=== PATIENT | female | born 1950 | race Caucasian/White ===

== ENCOUNTER 2019-01-01 15:13 | Outpatient (CLI) | payer OTHER | END 2019-01-01 21:08 | disposition home or self-care (01) | LOC: SRD 15:13 | PROVIDERS: ATTEND Internal Medicine | DX: R05 Cough (principal) | CPT/HCPCS: 71046-TC ==

== ENCOUNTER 2019-01-22 00:56 | Emergency (ER) | payer OTHER ==
[~2019-01-22] VITALS: Ht 160 cm; Wt 111.1 kg
[2019-01-22 01:00] VITALS: BP_SYST 155
[2019-01-22] MEDS ORDERED: BACITRACIN ZINC 15 GM TOPICAL OINTMENT TP ONE (03:00)
[2019-01-22] MEDS ORDERED: BACITRACIN 1 GM OINT TP ONE (03:11)
[2019-01-22 03:24] VITALS: BP_SYST 140
[2019-01-22] MEDS ORDERED: LIDOCAINE 1% 10 MG/ML, 20 ML MDV INJ ONE (03:30)
== END 2019-01-22 03:24 | disposition home or self-care (01) ==
LOC: SED 00:56
DX: S61.214A Laceration without foreign body of right ring finger without damage to nail, initial encounter (principal); W26.8XXA Contact with other sharp object(s), not elsewhere classified, initial encounter; Y93.89 Activity, other specified; Y92.89 Other specified places as the place of occurrence of the external cause; Y99.8 Other external cause status
CPT/HCPCS: 99283

== ENCOUNTER 2022-09-21 15:37 | Emergency (ER) | payer OTHER ==
[~2022-09-21] VITALS: Ht 160 cm; Wt 98.0 kg
[~2022-09-21 15:37] MED LIST: FURO20TA4 PO; GLIP10TA11 PO; LIP40 PO; METF-518 PO; METO50TA7 PO; OLAN5TAB71 PO; PROXL60 PO; TRAZ-250 PO; VALS1TAB80 PO
[2022-09-21 15:39] VITALS: BP_SYST 154
--- NOTE | 2022-09-21 15:46 | NUR ---
PT STATED SHE THOUGHT SHE TOOK ATENOLOL AND DIVALPROEX BUT SHE REALIZED THAT SHE DIDNT
== END 2022-09-21 15:46 | disposition left against medical advice (07) ==
LOC: SED 15:37
DX: Z00.8 Encounter for other general examination (principal); Z53.21 Procedure and treatment not carried out due to patient leaving prior to being seen by health care provider

== ENCOUNTER 2023-05-21 19:26 | Emergency (ER) | payer OTHER ==
[~2023-05-21] VITALS: Ht 154.9 cm; Wt 68.0 kg
[~2023-05-21 19:26] MED LIST changes: +NIFE-129 PO; -PROXL60 PO
[2023-05-21 19:41] VITALS: BP_SYST 151; PULSE 83; RESP 20; TEMP 98; O2SAT 98
[2023-05-21 20:41] LABS: BASOPHILS % (AUTO) 0.4 % (0.0-2.0); EOSINOPHILS # (AUTO) 0.1 K/uL (0.0-0.4); EOSINOPHILS % (AUTO) 0.9 % (0.0-4.0); HEMATOCRIT 34.5 % (36-48); HEMOGLOBIN 11.4 g/dL (12.0-16.0); LYMPHOCYTES # (AUTO) 1.1 K/uL (1.0-5.5); LYMPHOCYTES % (AUTO) 14.2 % (20.5-51.5); MEAN CORPUSCULAR HEMOGLOBIN 30 pg (27-31); MEAN CORPUSCULAR HGB CONC 33 % (32-36); MEAN CORPUSCULAR VOLUME 91 fL (79.0-98.0); MONOCYTES # (AUTO) 0.4 K/uL (0.0-1.0); MONOCYTES % (AUTO) 5.4 % (1.7-9.3); NEUTROPHILS # (AUTO) 5.9 K/uL (1.8-7.7); NEUTROPHILS % (AUTO) 79.1 % (40.0-70.0); PLATELET COUNT (AUTO) 229 K/uL (130-430); RED BLOOD CELL COUNT(AUTO) 3.81 MIL/uL (4.2-6.2); RED CELL DISTRIBUTION WIDTH 12.3 % (9.0-15.0); WHITE BLOOD COUNT (AUTO) 7.5 K/uL (4.8-10.8)
[2023-05-21 20:52] LABS: ANION GAP 7 (5-15); CALCIUM 9.5 mg/dL (8.4-11.0); CARBON DIOXIDE 29 mmol/L (23-29); CHLORIDE 103 mmol/L (98-107); CREATININE 0.97 mg/dL (0.55-1.30); GLUCOSE 155 mg/dL (74-106); POTASSIUM 3.5 mmol/L (3.5-5.1); SODIUM SERUM 139 mmol/L (136-145); UREA NITROGEN, BLOOD 19 mg/dL (8-21)
[2023-05-21 21:00] LABS: ALANINE AMINOTRANSFERASE 20 U/L (12-78); ALBUMIN 3.4 g/dL (3.4-4.8); ASPARTATE AMINOTRANSFERASE 14 U/L (10-37); TOTAL BILIRUBIN 0.7 mg/dL (0.0-1.0); TOTAL PROTEIN, SERUM 7.1 g/dL (6.4-8.3)
[2023-05-21 21:34] LABS: BILIRUBIN,URINE NEGATIVE (NEGATIVE); BLOOD, URINE 1+ (NEGATIVE); CLARITY/URINE CLOUDY (CLEAR); COLOR,URINE YELLOW (YELLOW); GLUCOSE,URINE NEGATIVE (NEGATIVE); KETONES,URINE NEGATIVE (NEGATIVE); LEUKOCYTE ESTERASE ,URINE 2+ (NEGATIVE); NITRITE, URINE POSITIVE (NEGATIVE); PROTEIN URINE 1+ (NEGATIVE); UROBILINOGEN,URINE 0.2 (0.2-1.0)
[2023-05-21] MEDS ORDERED: LIDOCAINE 1%, 20 ML MDV 20 ML ONE (21:58)
[2023-05-21 21:59] LABS: BACTERIA,URINE MANY /HPF (None Seen); WBC,URINE >100 /HPF (0-3)
[2023-05-21 22:00] LABS: MUCUS,URINE None Seen /LPF (None Seen)
[2023-05-21] MEDS ORDERED: cefTRIAXone 1 GM VIAL IM ONE (22:00)
[2023-05-21] MEDS ORDERED: LEVO750T64 PO (22:23)
[2023-05-21 22:30] VITALS: BP_SYST 142
[2023-05-21 23:12] VITALS: PULSE 75; RESP 16; TEMP 98; O2SAT 97
== END 2023-05-21 22:30 | disposition home or self-care (01) ==
LOC: SED 19:26
DX: N39.0 Urinary tract infection, site not specified (principal); R55 Syncope and collapse; E11.9 Type 2 diabetes mellitus without complications; I10 Essential (primary) hypertension; Z79.899 Other long term (current) drug therapy
CPT/HCPCS: 99285; 71045; 80053; 81001; 83880; 85025; 87086; 84484; 87186; 36415; 93005; 96372; 81000; 81015; J0696; J2001

== ENCOUNTER 2023-08-30 23:37 | Emergency (ER) | payer OTHER ==
[~2023-08-30] VITALS: Ht 160 cm; Wt 92.1 kg
[~2023-08-30 23:37] MED LIST changes: +FURO-149 PO; -FURO20TA4 PO; +LIP20 PO; -LIP40 PO; +METF-379 PO; -METF-518 PO; -METO50TA7 PO; -NIFE-129 PO; +NIFE-34 PO; +OLAN5TAB3 PO; -OLAN5TAB71 PO; +POTA-197 PO; +SYN75 PO; +TOPXL100 PO; -TRAZ-250 PO; -VALS1TAB80 PO; +VALS320T2 PO
[2023-08-31] VITALS: BP_SYST 145; PULSE 70; RESP 16; TEMP 98.2; O2SAT 100
[2023-08-31] MEDS ORDERED: KETOROLAC TROMETHAMINE 30 MG VIAL IVP ONE (01:30)
[2023-08-31] MEDS ORDERED: NACL 0.9% 1,000 ML IV ONE ×2 (01:30→05:30)
[2023-08-31] MEDS ORDERED: MORPHINE 4 MG INJ. 4 MG/ML VIAL IVP ONE (01:30)
[2023-08-31 01:59] LABS: BILIRUBIN,URINE NEGATIVE (NEGATIVE); BLOOD, URINE NEGATIVE (NEGATIVE); COLOR,URINE YELLOW (YELLOW); GLUCOSE,URINE NEGATIVE (NEGATIVE); KETONES,URINE NEGATIVE (NEGATIVE); LEUKOCYTE ESTERASE ,URINE 1+ (NEGATIVE); NITRITE, URINE NEGATIVE (NEGATIVE); PROTEIN URINE NEGATIVE (NEGATIVE); UROBILINOGEN,URINE 0.2 (0.2-1.0)
[2023-08-31 02:06] LABS: CLARITY/URINE SLIGHTLY CLOUDY (CLEAR)
[2023-08-31 02:07] LABS: BACTERIA,URINE FEW /HPF (None Seen); RBC,URINE 0-3 /HPF (0-3)
[2023-08-31 02:24] LABS: BASOPHILS % (AUTO) 0.8 % (0.0-2.0); EOSINOPHILS # (AUTO) 0.3 K/uL (0.0-0.4); EOSINOPHILS % (AUTO) 5.3 % (0.0-4.0); HEMATOCRIT 34.3 % (36-48); HEMOGLOBIN 11.3 g/dL (12.0-16.0); LYMPHOCYTES # (AUTO) 1.8 K/uL (1.0-5.5); MEAN CORPUSCULAR HEMOGLOBIN 29 pg (27-31); MEAN CORPUSCULAR HGB CONC 33 % (32-36); MEAN CORPUSCULAR VOLUME 88 fL (79.0-98.0); MONOCYTES # (AUTO) 0.4 K/uL (0.0-1.0); MONOCYTES % (AUTO) 6.8 % (1.7-9.3); NEUTROPHILS # (AUTO) 3.5 K/uL (1.8-7.7); NEUTROPHILS % (AUTO) 57.1 % (40.0-70.0); PLATELET COUNT (AUTO) 261 K/uL (130-430); RED BLOOD CELL COUNT(AUTO) 3.88 MIL/uL (4.2-6.2); RED CELL DISTRIBUTION WIDTH 12.2 % (9.0-15.0); WHITE BLOOD COUNT (AUTO) 6.1 K/uL (4.8-10.8)
[2023-08-31 02:39] LABS: ALANINE AMINOTRANSFERASE 21 U/L (12-78); ALBUMIN 3.1 g/dL (3.4-4.8); ANION GAP 8 (5-15); ASPARTATE AMINOTRANSFERASE 17 U/L (10-37); BILIRUBIN,DIRECT 0.1 mg/dL (0.0-0.3); CALCIUM 8.3 mg/dL (8.4-11.0); CARBON DIOXIDE 27 mmol/L (23-29); CHLORIDE 106 mmol/L (98-107); CREATININE 0.83 mg/dL (0.55-1.30); GLUCOSE 121 mg/dL (74-106); SODIUM SERUM 141 mmol/L (136-145); TOTAL BILIRUBIN 0.3 mg/dL (0.0-1.0); UREA NITROGEN, BLOOD 24 mg/dL (8-21)
[2023-08-31] MEDS ORDERED: cefTRIAXone 1 GM IVPB PREMIX 50 ML IV ONE (03:15)
[2023-08-31] MEDS ORDERED: OLAN2.5T29 PO (03:44)
[2023-08-31] MEDS ORDERED: metroNIDAZOLE 500 mg/NS 100 ML IV ONE (04:00)
[2023-08-31] MEDS ORDERED: MORPHINE 2 MG/ML INJ. SYRINGE IVP PRN ×3 (05:30→11:45)
[2023-08-31] MEDS ORDERED: metroNIDAZOLE 500 mg/NS 100 ML IV SCH (11:45)
[2023-08-31] MEDS ORDERED: NALOXONE HCL 0.4 MG/ML AMP (NARCAN) IVP PRN (11:45)
[2023-08-31] MEDS ORDERED: HYDROcodone/ACETAMIN 10-325 MG TAB PO PRN (11:45)
[2023-08-31] MEDS ORDERED: ACETAMINOPHEN 325 MG TABLET PO PRN (11:45)
[2023-08-31] MEDS ORDERED: ONDANSETRON HCL 4 MG/2 ML VIAL IVP PRN (11:45)
[2023-08-31] MEDS ORDERED: HYDROcodone/ACETAMIN 5-325 MG TAB (NORCO/ VICODIN) PO PRN (11:45)
[2023-08-31] MEDS ORDERED: OLANZapine 2.5 MG TABLET PO SCH (12:00)
[2023-08-31] MEDS ORDERED: ATORVASTATIN 20 MG TABLET PO SCH (12:00)
[2023-08-31] MEDS ORDERED: METOPROLOL SUCCINATE 50 MG TAB.SR.24H (TOPROL XL) PO SCH (12:00)
[2023-08-31] MEDS ORDERED: LEVOTHYROXINE SODIUM 0.075 MG TABLET PO SCH (12:00)
[2023-08-31] MEDS ORDERED: NIFEdipine 30 MG TAB.ER.24 PO SCH (12:00)
[2023-08-31 12:14] VITALS: BP_SYST 128; PULSE 61; RESP 19; TEMP 97; O2SAT 98
== END 2023-08-31 12:13 | disposition left against medical advice (07) ==
LOC: SED 23:37 → UNDOADMIN 08-31 05:27 → SMU 08-31 05:27
DX: K57.92 Diverticulitis of intestine, part unspecified, without perforation or abscess without bleeding (principal); N39.0 Urinary tract infection, site not specified
CPT/HCPCS: 99285; 74176; 96365; 96375; 96361; 80076; 80048; 81000; 81001; 85025; 87040; 87086; 36415; 76376; 96368; 81015; J0696; J1885; J3490; J2270